=== PATIENT | male | born 1980 | race Caucasian/White ===

== ENCOUNTER 2019-04-18 10:49 | Emergency (ER) | payer SELFPAY ==
[~2019-04-18] VITALS: Ht 182.9 cm; Wt 68.0 kg
[2019-04-18] MEDS ORDERED: Roxicodone5 MG PO (13:55)
== END 2019-04-18 14:16 | disposition home or self-care (01) ==
LOC: ER 10:49
DX: J93.83 Other pneumothorax (principal); F17.290 Nicotine dependence, other tobacco product, uncomplicated
CPT/HCPCS: 32551; 71046; 99283-25

== ENCOUNTER 2021-03-16 16:14 | Emergency (ER) | payer BC ==
[~2021-03-16] VITALS: Ht 182.9 cm; Wt 72.6 kg
[~2021-03-16 16:14] MED LIST: Roxicodone5 MG PO
== END 2021-03-16 19:53 | disposition home or self-care (01) ==
LOC: ER 16:14
DX: J93.83 Other pneumothorax (principal); Z87.891 Personal history of nicotine dependence
CPT/HCPCS: 32551; 36415; 71250; 93005; 93010; 96374-59; 99284-25; J1170